=== PATIENT | male | born 1940 | race Caucasian/White ===

== ENCOUNTER 2016-12-04 07:17 | Outpatient (CLI) | payer MEDICARE | END 2016-12-04 07:18 | disposition home or self-care (01) | DX: I10 Essential (primary) hypertension (principal); E78.5 Hyperlipidemia, unspecified; R73.9 Hyperglycemia, unspecified ==

== ENCOUNTER 2018-01-20 08:00 | Outpatient (CLI) | payer MEDICARE ==
[2018-01-20 13:17] LABS: BASOPHILS # (AUTO) 0.1 10^3/uL (0.0-0.1); BASOPHILS % (AUTO) 1.1 %; EOSINOPHILS # (AUTO) 0.2 10^3/uL (0.0-0.7); EOSINOPHILS % (AUTO) 4.4 %; HGB - HEMOGLOBIN 15.4 g/dL (14.0-18.0); LYMPHOCYTES # (AUTO) 1.6 10^3/uL (1.5-3.5); LYMPHOCYTES % (AUTO) 32.9 %; MEAN CORPUSCULAR HEMOGLOBIN 30.3 pg (27.0-31.0); MEAN CORPUSCULAR HGB CONC 34.5 g/dL (32.0-36.0); MEAN CORPUSCULAR VOLUME 87.7 fL (80.0-94.0); MEAN PLATELET VOLUME 8.4 fL (7.4-11.4); MONOCYTES # (AUTO) 0.4 10^3/uL (0.0-1.0); MONOCYTES % (AUTO) 8.2 %; NEUTROPHILS # (AUTO) 2.7 10^3/uL (1.5-6.6); NEUTROPHILS % (AUTO) 53.4 %; PLT - PLATELET COUNT 168 10^3/uL (130-450); RED CELL DISTRIBUTION WIDTH 13.9 % (12.0-15.0)
[2018-01-20 13:21] LABS: HB2 TOTAL 17.6 g/dL; HEMOGLOBIN A1C 0.71 g/dL; HEMOGLOBIN A1C % 5.8 % (4.6-6.2)
[2018-01-20 13:31] LABS: ALBUMIN 4.3 g/dL (3.2-5.5); ALBUMIN/GLOBULIN RATIO 2.4 (1.0-2.2); ALKALINE PHOSPHATASE 51 IU/L (42-121); ALT ALANINE AMINOTRANSFERASE 27 IU/L (10-60); AST ASPARTATE AMINOTRANSFERASE 27 IU/L (10-42); BILIRUBIN,TOTAL 0.4 mg/dL (0.2-1.0); BUN - BLOOD UREA NITROGEN 16 mg/dL (6-20); CALCIUM 9.2 mg/dL (8.5-10.3); CARBON DIOXIDE - CO2 23 mmol/L (21-32); CHLORIDE 106 mmol/L (101-111); CHOL/HDL RATIO 3.1 (<5.0); CHOLESTEROL 194 mg/dL; CREATININE 0.8 mg/dL (0.6-1.2); GFR - MDRD 94 (>89); GLUCOSE 145 mg/dL (70-100); HDL CHOLESTEROL 62 mg/dL; LDL CHOLESTEROL,CALCULATED 122 mg/dL; SODIUM 136 mmol/L (135-145); TOTAL PROTEIN 6.1 g/dL (6.7-8.2); VLDL CHOLESTEROL 10 mg/dL
== END 2018-01-20 08:01 ==
LOC: LAB.WCP 08:00
PROVIDERS: ATTEND Family Medicine
DX: I10 Essential (primary) hypertension (principal); R73.9 Hyperglycemia, unspecified; Z12.5 Encounter for screening for malignant neoplasm of prostate; E78.5 Hyperlipidemia, unspecified
CPT/HCPCS: 36415; 80053; 80061; 83036; 84443; 85025; G0103; 83721; 84153

== ENCOUNTER 2019-02-11 08:00 | Outpatient (CLI) | payer MEDICARE ==
[2019-02-11 12:24] LABS: BASOPHILS # (AUTO) 0.1 10^3/uL (0.0-0.1); EOSINOPHILS # (AUTO) 0.3 10^3/uL (0.0-0.7); EOSINOPHILS % (AUTO) 3.8 %; HGB - HEMOGLOBIN 13.8 g/dL (14.0-18.0); LYMPHOCYTES # (AUTO) 1.9 10^3/uL (1.5-3.5); LYMPHOCYTES % (AUTO) 23.9 %; MEAN CORPUSCULAR HEMOGLOBIN 29.3 pg (27.0-31.0); MEAN CORPUSCULAR HGB CONC 34.2 g/dL (32.0-36.0); MEAN CORPUSCULAR VOLUME 85.7 fL (80.0-94.0); MEAN PLATELET VOLUME 8.3 fL (7.4-11.4); MONOCYTES # (AUTO) 0.7 10^3/uL (0.0-1.0); MONOCYTES % (AUTO) 8.6 %; NEUTROPHILS # (AUTO) 4.9 10^3/uL (1.5-6.6); NEUTROPHILS % (AUTO) 62.7 %; PLT - PLATELET COUNT 162 10^3/uL (130-450); RED BLOOD COUNT 4.72 10^6/uL (4.70-6.10); RED CELL DISTRIBUTION WIDTH 13.1 % (12.0-15.0); WHITE BLOOD COUNT 7.9 x10^3/uL (4.8-10.8)
[2019-02-11 13:20] LABS: ALBUMIN 3.9 g/dL (3.2-5.5); ALBUMIN/GLOBULIN RATIO 1.6 (1.0-2.2); ALKALINE PHOSPHATASE 105 IU/L (42-121); ALT ALANINE AMINOTRANSFERASE 18 IU/L (10-60); AST ASPARTATE AMINOTRANSFERASE 16 IU/L (10-42); BILIRUBIN,TOTAL 0.7 mg/dL (0.2-1.0); BUN - BLOOD UREA NITROGEN 16 mg/dL (6-20); CALCIUM 9.3 mg/dL (8.5-10.3); CARBON DIOXIDE - CO2 25 mmol/L (21-32); CHLORIDE 102 mmol/L (101-111); CHOL/HDL RATIO 3.1 (<5.0); CHOLESTEROL 167 mg/dL; GFR - MDRD 72 (>89); GLUCOSE 125 mg/dL (70-100); HDL CHOLESTEROL 54 mg/dL; LDL CHOLESTEROL,CALCULATED 98 mg/dL; LDL/HDL RATIO 1.8 (<3.6); SODIUM 137 mmol/L (135-145); TOTAL PROTEIN 6.4 g/dL (6.7-8.2); VLDL CHOLESTEROL 15 mg/dL
== END 2019-02-11 08:01 | disposition home or self-care (01) ==
LOC: LAB.WCP 08:00
PROVIDERS: ATTEND Family Medicine
DX: I44.7 Left bundle-branch block, unspecified (principal); I10 Essential (primary) hypertension; R73.9 Hyperglycemia, unspecified; E78.5 Hyperlipidemia, unspecified; M10.00 Idiopathic gout, unspecified site
CPT/HCPCS: 36415; 80053; 80061; 83721; 84550; 85025

== ENCOUNTER 2019-10-22 08:00 | Outpatient (CLI) | payer MEDICARE ==
[2019-10-22 14:30] LABS: CALCIUM 9.3 mg/dL (8.5-10.3); CREATININE 0.9 mg/dL (0.6-1.2); URIC ACID 5.3 mg/dL (2.6-7.2)
== END 2019-10-22 23:59 | disposition home or self-care (01) ==
LOC: LAB.WCP 08:00
PROVIDERS: ATTEND Family Medicine
DX: M10.00 Idiopathic gout, unspecified site (principal)
CPT/HCPCS: 36415; 80048; 84550

== ENCOUNTER 2020-08-22 09:34 | Day surgery (SDC) | payer MEDICARE ==
[2020-08-22] MEDS ORDERED: fentaNYL 250 MCG/5 ML VIAL IVP ONE (09:35)
[2020-08-22] MEDS ORDERED: MIDAZOLAM 2 MG/2 ML VIAL IVP ONE (09:35)
[2020-08-22] MEDS ORDERED: LACTATED RINGERS 1,000 ML IV ONE ×2 (09:37→12:01)
[2020-08-22 12:17] VITALS: BP 133/68
[2020-08-22] MEDS ORDERED: ONDANSETRON ODT 4 MG TABLET ONE (12:54)
== END 2020-08-22 09:35 | disposition home or self-care (01) ==
LOC: SDS 09:34
PROVIDERS: ATTEND Surgery
DX: Z12.11 Encounter for screening for malignant neoplasm of colon (principal); K57.30 Diverticulosis of large intestine without perforation or abscess without bleeding; K64.8 Other hemorrhoids; Z80.0 Family history of malignant neoplasm of digestive organs; Z86.010 Personal history of colon polyps; I10 Essential (primary) hypertension; Z87.891 Personal history of nicotine dependence
CPT/HCPCS: G0105; J3010; J7120; Q0162

== ENCOUNTER 2021-04-28 08:00 | Outpatient (CLI) | payer MEDICARE ==
[2021-04-28 12:14] LABS: BASOPHILS # (AUTO) 0.1 10^3/uL (0.0-0.1); BASOPHILS % (AUTO) 0.8 %; EOSINOPHILS # (AUTO) 0.4 10^3/uL (0.0-0.7); EOSINOPHILS % (AUTO) 5.9 %; HCT - HEMATOCRIT 48.1 % (42.0-52.0); HGB - HEMOGLOBIN 16.3 g/dL (14.0-18.0); LYMPHOCYTES # (AUTO) 1.8 10^3/uL (1.5-3.5); LYMPHOCYTES % (AUTO) 28.6 %; MEAN CORPUSCULAR HEMOGLOBIN 30.5 pg (27.0-31.0); MEAN CORPUSCULAR HGB CONC 33.9 g/dL (32.0-36.0); MEAN CORPUSCULAR VOLUME 89.9 fL (80.0-94.0); MEAN PLATELET VOLUME 9.8 fL (7.4-11.4); MONOCYTES # (AUTO) 0.4 10^3/uL (0.0-1.0); MONOCYTES % (AUTO) 6.6 %; NEUTROPHILS # (AUTO) 3.7 10^3/uL (1.5-6.6); NEUTROPHILS % (AUTO) 57.8 %; PLT - PLATELET COUNT 172 10^3/uL (130-450); RED BLOOD COUNT 5.35 10^6/uL (4.70-6.10); WHITE BLOOD COUNT 6.4 x10^3/uL (4.8-10.8)
[2021-04-28 12:33] LABS: ESTIMATED AVERAGE GLUCOSE 114 mg/dL (70-100); HEMOGLOBIN A1c% 5.6 % (4.27-6.07)
[2021-04-28 12:44] LABS: THYROID STIMULATING HORMONE 1.48 uIU/mL (0.34-5.60)
[2021-04-28 12:45] LABS: ALBUMIN 4.5 g/dL (3.2-5.5); ALBUMIN/GLOBULIN RATIO 1.8 (1.0-2.2); ALKALINE PHOSPHATASE 78 IU/L (42-121); ALT ALANINE AMINOTRANSFERASE 20 IU/L (10-60); AST ASPARTATE AMINOTRANSFERASE 18 IU/L (10-42); BILIRUBIN,TOTAL 0.7 mg/dL (0.2-1.0); BUN - BLOOD UREA NITROGEN 16 mg/dL (6-20); CALCIUM 9.4 mg/dL (8.5-10.3); CARBON DIOXIDE - CO2 26 mmol/L (21-32); CHLORIDE 105 mmol/L (101-111); CHOL/HDL RATIO 2.3 (<5.0); CHOLESTEROL 174 mg/dL; CREATININE 0.8 mg/dL (0.6-1.2); GFR - MDRD 93 (>89); GLUCOSE 121 mg/dL (70-100); HDL CHOLESTEROL 75 mg/dL; LDL CHOLESTEROL,CALCULATED 83 mg/dL; LDL/HDL RATIO 1.1 (<3.6); POTASSIUM 4.3 mmol/L (3.5-5.0); SODIUM 140 mmol/L (135-145); TRIGLYCERIDES 80 mg/dL; URIC ACID 5.3 mg/dL (2.6-7.2); VLDL CHOLESTEROL 16 mg/dL
[2021-04-28 13:34] LABS: CREATININE,URINE 273.9 mg/dL; MICROALBUM/CREATININE RATIO,UR 29.6 ug/mg (<30.0); MICROALBUMIN,URINE 8.1 mg/dL (0-300.0)
== END 2021-04-28 23:59 | disposition home or self-care (01) ==
LOC: LAB.WCP 08:00
PROVIDERS: ATTEND Internal Medicine
DX: I10 Essential (primary) hypertension (principal); E78.5 Hyperlipidemia, unspecified; R73.9 Hyperglycemia, unspecified; E79.0 Hyperuricemia without signs of inflammatory arthritis and tophaceous disease
CPT/HCPCS: 36415; 80053; 80061; 82043; 82570; 83036; 83721; 84443; 84550; 85025

== ENCOUNTER 2021-04-28 10:35 | Outpatient (CLI) | payer MEDICARE ==
[2021-04-28 12:39] LABS: BILIRUBIN,URINE NEGATIVE (NEGATIVE); GLUCOSE, URINE (UA) 250 mg/dL (NEGATIVE); KETONES,URINE (UA) NEGATIVE (NEGATIVE); LEUKOCYTE ESTERASE, URINE NEGATIVE (NEGATIVE); NITRITE,URINE NEGATIVE (NEGATIVE); OCCULT BLOOD,URINE NEGATIVE (NEGATIVE); PH,URINE 5.5 PH (5.0-7.5); PROTEIN,URINE NEGATIVE (NEGATIVE); UROBILINOGEN,URINE 0.2 (NORMAL) E.U./dL (NORMAL)
[2021-04-28 13:03] LABS: CLARITY,URINE CLEAR (CLEAR); WBC,URINE 0-3 /HPF (0-3)
[2021-04-28 13:04] LABS: BACTERIA,URINE None Seen /HPF (None Seen); RBC,URINE 0-5 /HPF (0-5); SQUAMOUS EPITHELIAL CELL,UR RARE Squamous (<= Few)
== END 2021-04-28 23:59 | disposition home or self-care (01) ==
LOC: LAB.N 10:35
PROVIDERS: ATTEND Nurse Practitioner
DX: R10.9 Unspecified abdominal pain (principal); Z98.1 Arthrodesis status; I10 Essential (primary) hypertension; E78.5 Hyperlipidemia, unspecified; R73.9 Hyperglycemia, unspecified; E79.0 Hyperuricemia without signs of inflammatory arthritis and tophaceous disease
CPT/HCPCS: 36415; 80053; 80061; 81001; 82043; 82570; 83036; 83721; 84443; 84550; 85025; 87086

== ENCOUNTER → 2021-04-28 | Outpatient (CLI) | payer MEDICARE ==
--- NOTE | 2021-04-28 15:19 | XRAY Report ---
PROCEDURE: Lumbar Spine 2 View INDICATIONS: FLANK PAIN, RIGHT TECHNIQUE: 3 views of the lumbar spine were acquired. COMPARISON: None. FINDINGS: Bones: 5 [id number] vertebrae are present. There is normal bony alignment maintained by transv erse pedicle screws and vertical fixation rods with interbody disc spacers spanning from L1 through L 4.. No vertebral body compression fractures. No suspicious bony lesions. Soft tissues: Overlying bowel gas pattern is normal. No suspicious soft tissue calcifications. IMPRESSION: L1-L4 posterior fusion with interbody disc spacers at L4 1-2, L2-L3 and L3-L4. No eviden ce of device loosening or disruption is seen. Reviewed by: Adam Gaitan MD on 04/28/2021 3:18 PM PDT Approved by: Adam Gaitan MD on 04/28/2021 3:18 PM PDT Station ID: [id number]
== END ==
LOC: DI.N 10:29
PROVIDERS: ATTEND Nurse Practitioner
DX: R10.9 Unspecified abdominal pain (principal); Z98.1 Arthrodesis status

== ENCOUNTER 2021-07-21 07:00 | Outpatient (CLI) | payer MEDICARE ==
--- NOTE | 2021-07-21 10:04 | Ultrasound Report ---
PROCEDURE: Aorta Screening INDICATIONS: HIST OF SMOKING TECHNIQUE: Real time scanning was performed of the aorta and iliac arteries, with image documentatio n. COMPARISON: None FINDINGS: Aorta: Proximal aortic diameter measures 2.8 x 2.8 cm. Mid-aorta measures 2 x 1.9 cm. Distal aorti c diameter is 2.4 x 1.6 cm. Iliac arteries: Right common iliac artery measures 1.4 x 1.2 cm. Left common iliac artery measures 1.7 x 1.4 cm. Incidentally noted are multiple left renal cysts measures up to 4 x 3.7 x 4 cm in lower pole of left kidney. IMPRESSION: 1. No evidence of abdominal aortic aneurysm. 2. Multiple left renal cysts as above. Reviewed by: Tj Phan MD on 07/21/2021 10:02 AM PDT Approved by: Tj Phan MD on 07/21/2021 10:02 AM PDT Station ID: [id number]
== END 2021-07-21 07:01 | disposition home or self-care (01) ==
LOC: DI 07:00
PROVIDERS: ATTEND Internal Medicine
DX: Z13.6 Encounter for screening for cardiovascular disorders (principal); Z87.891 Personal history of nicotine dependence; N28.1 Cyst of kidney, acquired

== ENCOUNTER 2021-07-28 08:41 | Outpatient (CLI) | payer MEDICARE ==
[2021-07-28 12:39] LABS: CALCIUM 9.4 mg/dL (8.5-10.3); CREATININE 0.7 mg/dL (0.6-1.2); POTASSIUM 4.2 mmol/L (3.5-5.0); URIC ACID 5.6 mg/dL (2.6-7.2)
== END 2021-07-28 23:59 | disposition home or self-care (01) ==
LOC: LAB.WCP 08:41
PROVIDERS: ATTEND Internal Medicine
DX: I10 Essential (primary) hypertension (principal); M10.9 Gout, unspecified
CPT/HCPCS: 36415; 80048; 84550

== ENCOUNTER 2021-10-30 08:00 | Outpatient (CLI) | payer MEDICARE ==
[2021-10-30 12:01] LABS: CALCIUM 9.7 mg/dL (8.5-10.3); CREATININE 0.9 mg/dL (0.6-1.2); POTASSIUM 4.2 mmol/L (3.5-5.0); URIC ACID 4.9 mg/dL (2.6-7.2)
== END 2021-10-30 23:59 | disposition home or self-care (01) ==
LOC: LAB.WCP 08:00
PROVIDERS: ATTEND Internal Medicine
DX: M10.9 Gout, unspecified (principal)
CPT/HCPCS: 36415; 80048; 84550

== ENCOUNTER 2022-12-31 09:55 | Outpatient (CLI) | payer MEDICARE ==
[2022-12-31 12:07] LABS: BASOPHILS # (AUTO) 0.1 10^3/uL (0.0-0.1); BASOPHILS % (AUTO) 1.1 %; EOSINOPHILS # (AUTO) 0.3 10^3/uL (0.0-0.7); EOSINOPHILS % (AUTO) 5.2 %; HCT - HEMATOCRIT 45.4 % (42.0-52.0); LYMPHOCYTES % (AUTO) 30.4 %; MEAN CORPUSCULAR HEMOGLOBIN 31.2 pg (27.0-31.0); MEAN CORPUSCULAR HGB CONC 35.2 g/dL (32.0-36.0); MEAN CORPUSCULAR VOLUME 88.5 fL (80.0-94.0); MONOCYTES # (AUTO) 0.5 10^3/uL (0.0-1.0); MONOCYTES % (AUTO) 7.7 %; NEUTROPHILS # (AUTO) 3.6 10^3/uL (1.5-6.6); NEUTROPHILS % (AUTO) 55.3 %; PLT - PLATELET COUNT 182 10^3/uL (130-450); RED BLOOD COUNT 5.13 10^6/uL (4.70-6.10); RED CELL DISTRIBUTION WIDTH 13.1 % (12.0-15.0); WHITE BLOOD COUNT 6.5 x10^3/uL (4.8-10.8)
[2022-12-31 12:43] LABS: ALBUMIN 4.3 g/dL (3.2-5.5); ALBUMIN/GLOBULIN RATIO 1.8 (1.0-2.2); ALKALINE PHOSPHATASE 75 IU/L (42-121); ALT ALANINE AMINOTRANSFERASE 40 IU/L (10-60); AST ASPARTATE AMINOTRANSFERASE 26 IU/L (10-42); BILIRUBIN,TOTAL 0.7 mg/dL (0.2-1.0); BUN - BLOOD UREA NITROGEN 16 mg/dL (6-20); CALCIUM 9.2 mg/dL (8.5-10.3); CARBON DIOXIDE - CO2 26 mmol/L (21-32); CHLORIDE 111 mmol/L (101-111); CHOL/HDL RATIO 2.9 (<5.0); CHOLESTEROL 178 mg/dL; CREATININE 0.9 mg/dL (0.6-1.2); GFR - MDRD 81 (>89); GLUCOSE 180 mg/dL (70-100); HDL CHOLESTEROL 61 mg/dL; LDL CHOLESTEROL,CALCULATED 83 mg/dL; LDL/HDL RATIO 1.4 (<3.6); POTASSIUM 4.2 mmol/L (3.5-5.0); SODIUM 140 mmol/L (135-145); TOTAL PROTEIN 6.7 g/dL (6.7-8.2); TRIGLYCERIDES 168 mg/dL; URIC ACID 5.8 mg/dL (2.6-7.2); VLDL CHOLESTEROL 34 mg/dL
[2022-12-31 13:35] LABS: ESTIMATED AVERAGE GLUCOSE 126 mg/dL (70-100)
== END 2022-12-31 09:56 | disposition home or self-care (01) ==
LOC: LAB.N 09:55
PROVIDERS: ATTEND Internal Medicine
DX: I10 Essential (primary) hypertension (principal); E78.5 Hyperlipidemia, unspecified; R73.01 Impaired fasting glucose; M10.9 Gout, unspecified
CPT/HCPCS: 36415; 80053; 80061; 83036; 83721; 84550; 85025

== ENCOUNTER 2023-01-25 20:09 | Emergency (ER) | payer MEDICARE ==
--- NOTE | 2023-01-25 20:41 | ED Physician Documentation ---
History of Present Illness - Stated complaint Stated Complaint: LOW BP - Chief complaint Chief Complaint: General - History obtained from History obtained from: Patient - Additonal information Additional information: HPI from patient. Patient says he was active today. He then got into bed this evening and "didn't feel quite right so I took my blood pressure" (per patient), with result of 115/42. In elaborating on what didn't feel right, he describes generalized weakness, mild lightheadedness. Symptoms have resolved COMPTROLLER without specific intervention. There were no exacerbating nor ameliorating factors. On ROS, patient says he has been having mild midline anterior chest pains, episodic x several days, as well as dyspnea on exertion over past few weeks-months Review of Systems Constitutional: denies: Fever, Chills, Sweats Cardiac: reports: Chest pain / pressure (not currently having CP). denies: Palpitations, Pedal edema Respiratory: reports: Dyspnea. denies: Cough, Wheezing GI: reports: Reviewed and negative : denies: Dysuria, Frequency Neurologic: reports: Generalized weakness (resolved COMPTROLLER). denies: Focal weakness, Numbness PD PAST MEDICAL HISTORY - Past Medical History Cardiovascular: Hypertension, Arrhythmia Respiratory: None Endocrine/Autoimmune:  GI: Hemorrhoids : None HEENT: Chronic hearing loss Psych: None Musculoskeletal: Osteoarthritis, Gout, Chronic back pain Derm: None - Past Surgical History Ortho: Arthroscopic surgery, Carpal Tunnel surgery, Spine surgery, Other HEENT: Tonsil/Adenoidectomy - Present Medications Home Medications: Ambulatory Orders Medication Instructions Recorded Confirmed Lisinopril 10 mg PO DAILY 03/23/15 08/22/20 amLODIPine [Norvasc] 10 mg PO DAILY 03/23/15 08/22/20 Ascorbic Acid [Vitamin C] 500 mg PO DAILY 08/22/20 08/22/20 Colchicine [Colcrys] 0.6 mg PO ONCE 08/22/20 08/22/20 allopurinoL [Zyloprim] 300 mg PO DAILY 08/22/20 08/22/20 - Allergies Allergies/Adverse Reactions: Allergies Allergy/AdvReac Type Severity Reaction Status Date / Time No Known Drug Allergies Allergy Verified 01/25/23 20:18 - Social History Does the pt smoke?: No Smoking Status: Never smoker PD ED PE NORMAL - Vitals Vital signs reviewed: Yes - General General: Alert and oriented X 3, No acute distress, Well developed/nourished - HEENT HEENT: Moist mucous membranes - Cardiac Cardiac: RRR, No murmur - Respiratory Respiratory: No respiratory distress, Clear bilaterally - Abdomen Abdomen: Soft, Non tender - Derm Derm: Normal color, Warm and dry - Neuro Neuro: Alert and oriented X 3, wardrobe assistant 2-12 intact, No motor deficit, No sensory deficit, Normal speech Eye Opening: Spontaneous Motor: Obeys Commands Verbal: Oriented GCS Score: 15 Results - Vitals Vitals: Oxygen O2 Source Room air - EKG (time done) No standard instances EKG releavant findings:: EKG personally interpreted by author of this note. Relevant findings are: Rate: Rate (enter#) (66) Rhythm: NSR Gaastra: LAD Intervals: LBBB Other comments: Other comments (does not meet Sgarbossa criteria; LBBB not new (per patient)) - Labs Labs: Laboratory Tests 01/25/23 01/25/23 01/25/23 20:56 20:56 20:56 WBC 7.9 RBC 4.82 Hgb 14.6 Hct 42.8 MCV 88.8 MCH 30.3 MCHC 34.1 RDW 12.8 Plt Count 157 MPV 9.2 Neut # (Auto) 4.2 Lymph # (Auto) 2.6 Mathews # (Auto) 0.6 Eos # (Auto) 0.4 Baso # (Auto) 0.1 Absolute Nucleated RBC 0.00 Nucleated RBC % 0.0 Sodium 138 Potassium 4.0 Chloride 104 Carbon Dioxide 21 Anion Gap 13.0 BUN 16 Creatinine 1.0 Estimated GFR (MDRD) 72 L Glucose 138 H Calcium 9.1 Total Bilirubin 0.4 AST 25 ALT 37 Alkaline Phosphatase 76 Troponin I High Sens 24.1 H* Total Protein 6.1 L Albumin 3.9 Globulin 2.2 Albumin/Globulin Ratio 1.8 Lipase 45 01/25/23 22:50 WBC RBC Hgb Hct MCV MCH MCHC RDW Plt Count MPV Neut # (Auto) Lymph # (Auto) Mathews # (Auto) Eos # (Auto) Baso # (Auto) Absolute Nucleated RBC Nucleated RBC % Sodium Potassium Chloride Carbon Dioxide Anion Gap BUN Creatinine Estimated GFR (MDRD) Glucose Calcium Total Bilirubin AST ALT Alkaline Phosphatase Troponin I High Sens 23.9 H* Total Protein Albumin Globulin Albumin/Globulin Ratio Lipase - Rads (name of study) cxr Relevant Findings:: Prelim report reviewed, EMP independent interpretation of test (Images reviewed by me and my interpretation is no acute disease including no infiltrate, no cardiomegaly), See rad report PD Medical Decision Making - ED course Complexity details: reviewed results, re-evaluated patient, considered differential, d/w patient ED course: Presents with near-syncope. LBBB on EKG is not new, per patient. Blood test results unremarkable except for mildly elevated hs-cTn (24.1), but 2-hour repeat without significant change (23.9) Departure - Departure Disposition: Home, Self Care Clinical Impression: Near syncope Condition: Good Instructions: ED Near Syncope Unkn Comments: Your blood tests were almost completely normal with the notable exception of the cardiac blood test which, as we discussed, was slightly elevated above the normal range. Sometimes this can indicate a serious cardiac problem, but a repeat of the same test (two hours from the first result) was unchanged; this wo uld strongly suggest against an acute cardiac issue. The cause of your symptoms and mildly low blood pressure is not apparent at this time. Your blood pressures were normal in the emergency department. I would recommend that you stop your lisinopril (but continue your amlodipine and all of your other medications as prescribed) over the weekend and monitor your blood pressures. It would be preferable to have your blood pressures run a little bit higher than normal over the weekend rather than too low; a low blood pressure is an immediate danger whereas high blood pressure tends to be a problem over time. Contact your primary care provider on Saturday when their office opens to arrange for the next available appointment for reevaluation. Discharge Date/Time: 01/25/23 23:51
--- NOTE | 2023-01-25 20:57 | XRAY Report ---
PROCEDURE: Chest 1 View X-Ray INDICATIONS: Chest pain TECHNIQUE: One view of the chest was acquired. COMPARISON: Chest x-ray 08/16/2015. FINDINGS: Surgical changes and devices: Postsurgical changes demonstrated within the lower cervical spine. Lungs and pleura: No pleural effusions or pneumothorax. Lungs are clear. Mediastinum: Mediastinal contours appear normal. Heart size is normal. Bones and chest wall: No suspicious bony lesions. Overlying soft tissues appear unremarkable. IMPRESSION: 1. No acute cardiopulmonary disease. Reviewed by: Omid Zuñiga MD on 01/25/2023 8:56 PM PDT Approved by: Omid Zuñiga MD on 01/25/2023 8:56 PM PDT Station ID: [id number]
[2023-01-25 21:05] LABS: BASOPHILS # (AUTO) 0.1 10^3/uL (0.0-0.1); BASOPHILS % (AUTO) 0.9 %; EOSINOPHILS # (AUTO) 0.4 10^3/uL (0.0-0.7); EOSINOPHILS % (AUTO) 5.1 %; HCT - HEMATOCRIT 42.8 % (42.0-52.0); HGB - HEMOGLOBIN 14.6 g/dL (14.0-18.0); LYMPHOCYTES # (AUTO) 2.6 10^3/uL (1.5-3.5); LYMPHOCYTES % (AUTO) 32.9 %; MEAN CORPUSCULAR HEMOGLOBIN 30.3 pg (27.0-31.0); MEAN CORPUSCULAR HGB CONC 34.1 g/dL (32.0-36.0); MEAN CORPUSCULAR VOLUME 88.8 fL (80.0-94.0); MEAN PLATELET VOLUME 9.2 fL (7.4-11.4); MONOCYTES # (AUTO) 0.6 10^3/uL (0.0-1.0); MONOCYTES % (AUTO) 7.5 %; NEUTROPHILS # (AUTO) 4.2 10^3/uL (1.5-6.6); NEUTROPHILS % (AUTO) 53.5 %; PLT - PLATELET COUNT 157 10^3/uL (130-450); RED BLOOD COUNT 4.82 10^6/uL (4.70-6.10); RED CELL DISTRIBUTION WIDTH 12.8 % (12.0-15.0); WHITE BLOOD COUNT 7.9 x10^3/uL (4.8-10.8)
[2023-01-25 21:19] LABS: ALBUMIN 3.9 g/dL (3.2-5.5); ALBUMIN/GLOBULIN RATIO 1.8 (1.0-2.2); BILIRUBIN,TOTAL 0.4 mg/dL (0.2-1.0); CALCIUM 9.1 mg/dL (8.5-10.3); TOTAL PROTEIN 6.1 g/dL (6.7-8.2)
[2023-01-25 23:18] VITALS: BP 140/59
== END 2023-01-25 23:51 | disposition home or self-care (01) ==
LOC: ED 20:09
DX: R55 Syncope and collapse (principal); I10 Essential (primary) hypertension
CPT/HCPCS: 36415; 80053; 83690; 84484; 85025; 93005; 99283; 99284

== ENCOUNTER 2023-05-28 11:51 | Outpatient (CLI) | payer MEDICARE ==
[2023-05-28 12:22] LABS: CREATININE 0.8 mg/dL (0.6-1.3)
== END 2023-05-28 11:52 | disposition home or self-care (01) ==
LOC: LAB 11:51
PROVIDERS: ATTEND Internal Medicine
DX: I73.9 Peripheral vascular disease, unspecified (principal)
CPT/HCPCS: 36415; 82565

== ENCOUNTER 2023-06-06 14:02 | Outpatient (CLI) | payer MEDICARE ==
[2023-06-06] MEDS ORDERED: IOVERSOL 320 100 ML VIAL IVP ONE (16:31)
--- NOTE | 2023-06-06 17:49 | CT Report ---
PROCEDURE: ANGIO ABD RUNOFF W/WO - B/L INDICATIONS: BILATERAL CLAUDICATION CONTRAST: 140ml Optiray 320 TECHNIQUE: After the administration of intravenous contrast, a CT scan of the abdomen, pelvis and lower extremit ies (to the feet) was performed. Images were recorded and evaluated at appropriate window settings. R eformats: coronal and sagittal. For radiation dose reduction, the following was used: automated expos ure control, adjustment of mA and/or kV according to patient size. COMPARISON: None. FINDINGS: Image quality: Excellent. Abdominal aorta: Atheromatous calcifications are present throughout the infrarenal abdominal aorta. No aneurysmal dilatation or dissection. The MARCO, SMA, celiac axis and renal arteries are widely paten t. Right lower extremity: Common iliac artery: Mild atheromatous calcification. No stenosis. External iliac artery: Mild calcification. No stenosis. Common femoral artery: Atheromatous calcification is present with mild resultant stenosis. Superficial femoral artery: Scattered atheromatous plaque and calcifications are present. Multifocal moderate to high-grade stenoses are present within the mid SFA. Popliteal artery: Dense atheromatous calcification results in moderate and severe stenoses. Anterior tibial artery: No significant atherosclerotic disease. Peroneal artery: No significant atherosclerotic disease. Posterior tibial artery: No significant atherosclerotic disease. Left lower extremity: Right lower extremity: Common iliac artery: Atheromatous calcifications with mild stenosis. External iliac artery: No significant atherosclerotic disease. Common femoral artery: Atheromatous calcification with mild to moderate stenosis. Superficial femoral artery: Mild to moderate multifocal stenoses secondary to atheromatous calcificat ions. Popliteal artery: A moderate grade stenosis secondary to atheromatous calcifications is present. Anterior tibial artery: No significant atherosclerotic disease. Peroneal artery: No significant atherosclerotic disease. Posterior tibial artery: No significant atherosclerotic disease. OTHER: Lung bases and heart: Unremarkable. Liver: No solid mass. Gallbladder and biliary tree: Unremarkable. No dilatation. Spleen: No splenomegaly. Pancreas: No pancreatic ductal dilation. Adrenals: No adrenal nodule. Kidneys and ureters: No hydronephrosis. There are bilateral low-density renal cystic lesions. 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 Bowel and peritoneum: No bowel distension. No pathologic free fluid. Diverticulosis. No acute diverti culitis. The appendix is thin-walled and gas-filled. Lymph nodes: No central or retroperitoneal adenopathy. Vessels: No infrarenal aortic aneurysm. Reproductive organs: Unremarkable. Bladder: No abnormal wall thickening, accounting for underdistention. Pelvic lymph nodes: No pelvic adenopathy by size criteria. Bones: No aggressive osseous abnormality. Extensive postoperative changes noted within the lumbar spi ne. Other: There is a moderate fat-containing left inguinal hernia. IMPRESSION: 1. 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 2. Multifocal high-grade stenoses within the right popliteal artery. 3. Three-vessel right lower extremity runoff. 4. Moderate multifocal stenoses within the left SFA and popliteal artery. 5. Three-vessel left lower extremity runoff. 6. No acute intra-abdominal findings. Normal appendix. Diverticulosis. No acute diverticulitis. Reviewed by: Parul Herndon MD on 06/06/2023 5:48 PM PDT Approved by: Parul Herndon MD on 06/06/2023 5:48 PM PDT Station ID: [id number]
== END 2023-06-06 14:03 | disposition home or self-care (01) ==
LOC: DI 14:02
PROVIDERS: ATTEND Internal Medicine
DX: I70.213 Atherosclerosis of native arteries of extremities with intermittent claudication, bilateral legs (principal)
CPT/HCPCS: 75635; Q9967

== ENCOUNTER 2023-07-13 19:27 | Emergency (ER) | payer MEDICARE ==
[2023-07-13] MEDS ORDERED: ACETAMINOPHEN 500 MG TABLET PO STA (20:15)
[2023-07-13] MEDS ORDERED: SODIUM CHLORIDE 0.9% 1,000 ML IV STA (20:15)
--- NOTE | 2023-07-13 20:18 | ED Physician Documentation ---
History of Present Illness - Stated complaint Stated Complaint: FEVER,CONGESTION - Chief complaint Chief Complaint: Fever - History obtained from History obtained from: Patient - Additonal information Additional information: Patient is an 82-year-old male with a history of hypertension presenting for evaluation of 2 days of fever, nasal congestion, productive cough of yellow phlegm. He reports feeling weak and dizzy today. He denies chest pain or feeling short of air. No vomiting or diarrhea. His is also recently been ill with similar symptoms. The at the bedside states that she went to a meet up with other sewing friends and since then for others have been ill along with their spouses with similar URI symptoms. They both taken COVID test at home which have been negative. He has not taken ibuprofen or acetaminophen today. He is currently on day 5 of Augmentin for a dental infection. Review of Systems Constitutional: reports: Fever Nose: reports: Congestion Cardiac: denies: Chest pain / pressure Respiratory: reports: Cough GI: denies: Abdominal Pain, Vomiting : denies: Dysuria Neurologic: reports: Generalized weakness PD PAST MEDICAL HISTORY - Past Medical History Cardiovascular: Hypertension, Arrhythmia Respiratory: None Endocrine/Autoimmune:  GI: Hemorrhoids : None HEENT: Chronic hearing loss Psych: None Musculoskeletal: Osteoarthritis, Gout, Chronic back pain Derm: None - Past Surgical History Ortho: Arthroscopic surgery, Carpal Tunnel surgery, Spine surgery, Other HEENT: Tonsil/Adenoidectomy - Present Medications Home Medications: Ambulatory Orders Medication Instructions Recorded Confirmed Lisinopril 10 mg PO DAILY 03/23/15 08/22/20 amLODIPine [Norvasc] 10 mg PO DAILY 03/23/15 08/22/20 Ascorbic Acid [Vitamin C] 500 mg PO DAILY 08/22/20 08/22/20 Colchicine [Colcrys] 0.6 mg PO ONCE 08/22/20 08/22/20 allopurinoL [Zyloprim] 300 mg PO DAILY 08/22/20 08/22/20 - Allergies Allergies/Adverse Reactions: Allergies Allergy/AdvReac Type Severity Reaction Status Date / Time No Known Drug Allergies Allergy Verified 01/25/23 20:18 - Social History Does the pt smoke?: No Smoking Status: Never smoker PD ED PE NORMAL - General General: Alert and oriented X 3, No acute distress, Well developed/nourished - HEENT HEENT: Atraumatic, Moist mucous membranes, Pharynx benign - Neck Neck: Supple, no meningeal sign - Cardiac Cardiac: RRR, No murmur - Respiratory Respiratory: No respiratory distress, Clear bilaterally - Abdomen Abdomen: Normal bowel sounds, Soft, Non tender, Non distended, Other (Easily reducible ventral wall hernia) - Derm Derm: Warm and dry - Neuro Neuro: Alert and oriented X 3, Normal speech Results - Vitals Vitals: Vital Signs - 24 hr 07/13/23 07/13/23 07/13/23 19:48 20:24 20:54 Temperature 38.1 C H Heart Rate 92 84 85 Respiratory 19 20 20 Rate Blood Pressure 90/68 153/57 H O2 Saturation 93 95 94 07/13/23 07/13/23 07/13/23 21:24 21:54 22:00 Temperature Heart Rate 82 84 84 Respiratory 22 20 20 Rate Blood Pressure 147/58 H 140/57 H 140/57 H O2 Saturation 94 93 93 07/13/23 22:30 Temperature Heart Rate 77 Respiratory 18 Rate Blood Pressure 124/56 L O2 Saturation 93 Oxygen O2 Source Room air - Labs Labs: Laboratory Tests 07/13/23 07/13/23 07/13/23 20:29 20:29 20:29 WBC 12.6 H RBC 4.82 Hgb 14.7 Hct 42.8 MCV 88.8 MCH 30.5 MCHC 34.3 RDW 12.5 Plt Count 205 MPV 8.7 Neut # (Auto) 10.3 H Lymph # (Auto) 1.1 L [place] # (Auto) 1.0 Eos # (Auto) 0.1 Baso # (Auto) 0.1 Absolute Nucleated RBC 0.00 Nucleated RBC % 0.0 Sodium 133 L Potassium 3.9 Chloride 101 Carbon Dioxide 26 Anion Gap 6.0 BUN 13 Creatinine 0.9 Estimated GFR (MDRD) 81 L Glucose 143 H Lactic Acid 1.1 Calcium 9.5 Total Bilirubin 0.6 AST 15 ALT 23 Alkaline Phosphatase 81 Total Protein 6.3 L Albumin 4.1 Globulin 2.2 Albumin/Globulin Ratio 1.9 Lipase 30 Urine Color Urine Clarity Urine pH Ur Specific [place] Urine Protein Urine Glucose (UA) Urine Ketones Urine Occult Blood Urine Nitrite Urine Bilirubin Urine Urobilinogen Ur Leukocyte Esterase Ur Microscopic Review Urine Culture Comments Nasal Adenovirus (PCR) Nasal B. parapertussis DNA (PCR) Nasal Coronavir 229E PCR Nasal Coronavir HKU1 PCR Nasal Coronavir NL63 PCR Nasal Coronavir OC43 PCR Nasal Enterovir/Rhinovir PCR Nasal Influenza B PCR Nasal Influenza A PCR Nasal Parainfluen 1 PCR Nasal Parainfluen 2 PCR Nasal Parainfluen 3 PCR Nasal Parainfluen 4 PCR Nasal RSV (PCR) Nasal B.pertussis DNA PCR Nasal C.pneumoniae (PCR) Mehdi Human Metapneumo PCR Nasal M.pneumoniae (PCR) Nasal SARS-CoV-2 (PCR) 07/13/23 07/13/23 20:52 22:12 WBC RBC Hgb Hct MCV MCH MCHC RDW Plt Count MPV Neut # (Auto) Lymph # (Auto) [place] # (Auto) Eos # (Auto) Baso # (Auto) Absolute Nucleated RBC Nucleated RBC % Sodium Potassium Chloride Carbon Dioxide Anion Gap BUN Creatinine Estimated GFR (MDRD) Glucose Lactic Acid Calcium Total Bilirubin AST ALT Alkaline Phosphatase Total Protein Albumin Globulin Albumin/Globulin Ratio Lipase Urine Color YELLOW Urine Clarity CLEAR Urine pH 6.0 Ur Specific [place] 1.020 Urine Protein NEGATIVE Urine Glucose (UA) NEGATIVE Urine Ketones NEGATIVE Urine Occult Blood NEGATIVE Urine Nitrite NEGATIVE Urine Bilirubin NEGATIVE Urine Urobilinogen 0.2 (NORMAL) Ur Leukocyte Esterase NEGATIVE Ur Microscopic Review NOT INDICATED Urine Culture Comments NOT INDICATED Nasal Adenovirus (PCR) NOT DETECTED Nasal B. parapertussis DNA (PCR) NOT DETECTED Nasal Coronavir 229E PCR NOT DETECTED Nasal Coronavir HKU1 PCR NOT DETECTED Nasal Coronavir NL63 PCR NOT DETECTED Nasal Coronavir OC43 PCR NOT DETECTED Nasal Enterovir/Rhinovir PCR DETECTED A Nasal Influenza B PCR NOT DETECTED Nasal Influenza A PCR NOT DETECTED Nasal Parainfluen 1 PCR NOT DETECTED Nasal Parainfluen 2 PCR NOT DETECTED Nasal Parainfluen 3 PCR NOT DETECTED Nasal Parainfluen 4 PCR NOT DETECTED Nasal RSV (PCR) NOT DETECTED Nasal B.pertussis DNA PCR NOT DETECTED Nasal C.pneumoniae (PCR) NOT DETECTED Mehdi Human Metapneumo PCR NOT DETECTED Nasal M.pneumoniae (PCR) NOT DETECTED Nasal SARS-CoV-2 (PCR) NOT DETECTED PD Medical Decision Making - ED course Complexity details: reviewed results, re-evaluated patient, d/w patient, d/w family ED course: Patient presenting for evaluation of fever and URI symptoms for 2 days. is also been ill with similar symptoms. Sepsis work-up initiated due to age and presence of fever. Initial BP was low but on recheck was improved even prior to initiation of fluids. CBC, chemistries, chest x-ray and respiratory swab were obtained and reviewed. Mild leukocytosis. Blood cultures are pending. Chest x-ray which I reviewed is negative for pneumonia. Respiratory swab is positive for rhinovirus. Patient feeling better after IV fluids and acetaminophen. Patient not requiring oxygen here. He is counseled on continued supportive care as well as concerning symptoms to return for. Departure - Departure Disposition: Home, Self Care Clinical Impression: Rhinovirus, Febrile illness Condition: Stable Instructions: ED Viral Syndrome Comments: Your testing today shows that you are positive for rhinovirus/enterovirus which is a common cold virus. Please continue with acetaminophen or ibuprofen as needed for fevers or pain, plenty of hydration as well as rest. Return to the emergency department with any worsening symptoms. At this time I do not see signs of pneumonia on your chest x-ray. Forms: PCP List Discharge Date/Time: 07/13/23 23:02
[2023-07-13 20:37] LABS: BASOPHILS # (AUTO) 0.1 10^3/uL (0.0-0.1); BASOPHILS % (AUTO) 0.4 %; EOSINOPHILS # (AUTO) 0.1 10^3/uL (0.0-0.7); HCT - HEMATOCRIT 42.8 % (42.0-52.0); HGB - HEMOGLOBIN 14.7 g/dL (14.0-18.0); LYMPHOCYTES # (AUTO) 1.1 10^3/uL (1.5-3.5); LYMPHOCYTES % (AUTO) 8.9 %; MEAN CORPUSCULAR HEMOGLOBIN 30.5 pg (27.0-31.0); MEAN CORPUSCULAR HGB CONC 34.3 g/dL (32.0-36.0); MEAN CORPUSCULAR VOLUME 88.8 fL (80.0-94.0); MEAN PLATELET VOLUME 8.7 fL (7.4-11.4); NEUTROPHILS # (AUTO) 10.3 10^3/uL (1.5-6.6); NEUTROPHILS % (AUTO) 81.5 %; PLT - PLATELET COUNT 205 10^3/uL (130-450); RED BLOOD COUNT 4.82 10^6/uL (4.70-6.10); RED CELL DISTRIBUTION WIDTH 12.5 % (12.0-15.0); WHITE BLOOD COUNT 12.6 x10^3/uL (4.8-10.8)
[2023-07-13 20:49] LABS: ALBUMIN 4.1 g/dL (3.2-5.5); ALBUMIN/GLOBULIN RATIO 1.9 (1.0-2.2); BILIRUBIN,TOTAL 0.6 mg/dL (0.2-1.0); CALCIUM 9.5 mg/dL (8.5-10.3); CREATININE 0.9 mg/dL (0.6-1.3); POTASSIUM 3.9 mmol/L (3.5-4.5); TOTAL PROTEIN 6.3 g/dL (6.4-8.9)
--- NOTE | 2023-07-13 20:55 | XRAY Report ---
PROCEDURE: Chest 1 View X-Ray INDICATIONS: fever TECHNIQUE: One view of the chest was acquired. COMPARISON: None FINDINGS: Surgical changes and devices: None. Lungs and pleura: No pleural effusions or pneumothorax. Lungs are clear. Mediastinum: Mediastinal contours appear normal. Heart size is normal. Bones and chest wall: No suspicious bony lesions. Overlying soft tissues appear unremarkable. IMPRESSION: No acute cardiopulmonary findings Reviewed by: Charli Rapp MD on 07/13/2023 7:54 PM AKDT Approved by: Charli Rapp MD on 07/13/2023 7:54 PM AKDT Station ID: [id number]
[2023-07-13 22:01] LABS: B. PARAPERTUSSIS- RESP PCR PAN NOT DETECTED; B. PERTUSSIS- RESP PCR PANEL NOT DETECTED; C. PNEUMONIAE- RESP PCR PANEL NOT DETECTED; CORONAVIRUS 229E-RESP PCR NOT DETECTED; CORONAVIRUS HKU1-RESP PCR NOT DETECTED; CORONAVIRUS NL63-RESP PCR NOT DETECTED; CORONAVIRUS OC43-RESP PCR NOT DETECTED; HUMAN METAPNEUMOVIRUS NOT DETECTED; INFLUENZA A- RESP PCR PANEL NOT DETECTED; INFLUENZA B - RESP PCR PANEL NOT DETECTED; M. PNEUMONIAE- RESP PCR PANEL NOT DETECTED; PARAINFLUENZA VIRUS 1 NOT DETECTED; PARAINFLUENZA VIRUS 2 NOT DETECTED; PARAINFLUENZA VIRUS 3 NOT DETECTED; PARAINFLUENZA VIRUS 4 NOT DETECTED; RHINOVIRUS/ENTEROVIRUS DETECTED; RSV- RESP PCR PANEL NOT DETECTED; SARS-CoV-2 -RESP PCR PANEL NOT DETECTED
[2023-07-13 22:39] LABS: BILIRUBIN,URINE NEGATIVE (NEGATIVE); GLUCOSE, URINE (UA) NEGATIVE (NEGATIVE); KETONES,URINE (UA) NEGATIVE (NEGATIVE); LEUKOCYTE ESTERASE, URINE NEGATIVE (NEGATIVE); NITRITE,URINE NEGATIVE (NEGATIVE); OCCULT BLOOD,URINE NEGATIVE (NEGATIVE); PROTEIN,URINE NEGATIVE (NEGATIVE); UROBILINOGEN,URINE 0.2 (NORMAL) E.U./dL (NORMAL)
[2023-07-13 22:46] LABS: CLARITY,URINE CLEAR (CLEAR)
[2023-07-13 23:02] VITALS: BP 124/56; O2SAT 93
== END 2023-07-13 23:02 | disposition home or self-care (01) ==
LOC: ED 19:27
DX: B34.8 Other viral infections of unspecified site (principal); I10 Essential (primary) hypertension; Z20.822 Contact with and (suspected) exposure to COVID-19
CPT/HCPCS: 36415; 71045; 80053; 81003; 83605; 83690; 85025; 87040; 87633; 93005; 99284; A9270; 81001; 87086

== ENCOUNTER 2023-10-07 09:47 | Outpatient (CLI) | payer MEDICARE ==
[2023-10-07 12:35] LABS: BASOPHILS # (AUTO) 0.1 10^3/uL (0.0-0.1); BASOPHILS % (AUTO) 0.8 %; EOSINOPHILS # (AUTO) 0.4 10^3/uL (0.0-0.7); EOSINOPHILS % (AUTO) 4.9 %; HCT - HEMATOCRIT 45.2 % (42.0-52.0); HGB - HEMOGLOBIN 15.5 g/dL (14.0-18.0); LYMPHOCYTES # (AUTO) 2.3 10^3/uL (1.5-3.5); LYMPHOCYTES % (AUTO) 29.1 %; MEAN CORPUSCULAR HGB CONC 34.3 g/dL (32.0-36.0); MEAN CORPUSCULAR VOLUME 87.6 fL (80.0-94.0); MEAN PLATELET VOLUME 9.9 fL (7.4-11.4); MONOCYTES # (AUTO) 0.6 10^3/uL (0.0-1.0); MONOCYTES % (AUTO) 7.7 %; NEUTROPHILS # (AUTO) 4.4 10^3/uL (1.5-6.6); NEUTROPHILS % (AUTO) 57.2 %; PLT - PLATELET COUNT 186 10^3/uL (130-450); RED BLOOD COUNT 5.16 10^6/uL (4.70-6.10); RED CELL DISTRIBUTION WIDTH 13.2 % (12.0-15.0); WHITE BLOOD COUNT 7.8 x10^3/uL (4.8-10.8)
[2023-10-07 13:04] LABS: ALBUMIN 4.3 g/dL (3.2-5.5); ALKALINE PHOSPHATASE 89 IU/L (42-121); ALT ALANINE AMINOTRANSFERASE 24 IU/L (10-60); AST ASPARTATE AMINOTRANSFERASE 17 IU/L (10-42); BILIRUBIN,TOTAL 0.6 mg/dL (0.2-1.0); BUN - BLOOD UREA NITROGEN 14 mg/dL (6-20); CALCIUM 9.6 mg/dL (8.5-10.3); CARBON DIOXIDE - CO2 26 mmol/L (21-32); CHLORIDE 106 mmol/L (101-111); CHOLESTEROL 180 mg/dL; CREATININE 0.9 mg/dL (0.6-1.3); GFR - MDRD 81 (>89); GLUCOSE 133 mg/dL (74-104); HDL CHOLESTEROL 61 mg/dL; LDL CHOLESTEROL,CALCULATED 101 mg/dL; LDL/HDL RATIO 1.7 (<3.6); POTASSIUM 4.2 mmol/L (3.5-4.5); SODIUM 138 mmol/L (135-145); TOTAL PROTEIN 6.5 g/dL (6.4-8.9); TRIGLYCERIDES 91 mg/dL (48-352); VLDL CHOLESTEROL 18 mg/dL
[2023-10-07 13:07] LABS: THYROID STIMULATING HORMONE 1.35 uIU/mL (0.34-5.60)
[2023-10-07 13:08] LABS: ESTIMATED AVERAGE GLUCOSE 123 mg/dL (70-100); HEMOGLOBIN A1c% 5.9 % (4.27-6.07)
== END 2023-10-07 09:48 | disposition home or self-care (01) ==
LOC: LAB.N 09:47
PROVIDERS: ATTEND Internal Medicine
DX: I10 Essential (primary) hypertension (principal); E78.5 Hyperlipidemia, unspecified; R73.01 Impaired fasting glucose; I47.19 Other supraventricular tachycardia
CPT/HCPCS: 36415; 80053; 80061; 83036; 83721; 84443; 85025

== ENCOUNTER 2024-02-13 08:11 | Outpatient (CLI) | payer MEDICARE ==
[2024-02-13 12:21] LABS: ALBUMIN 4.4 g/dL (3.2-5.5); ALBUMIN/GLOBULIN RATIO 1.8 (1.0-2.2); ALKALINE PHOSPHATASE 86 IU/L (42-121); ALT ALANINE AMINOTRANSFERASE 18 IU/L (10-60); AST ASPARTATE AMINOTRANSFERASE 18 IU/L (10-42); BILIRUBIN,TOTAL 0.5 mg/dL (0.2-1.0); BUN - BLOOD UREA NITROGEN 12 mg/dL (6-20); CALCIUM 10.1 mg/dL (8.5-10.3); CARBON DIOXIDE - CO2 26 mmol/L (21-32); CHLORIDE 106 mmol/L (101-111); CHOL/HDL RATIO 2.4 (<5.0); CHOLESTEROL 165 mg/dL; CREATININE 0.8 mg/dL (0.6-1.3); GFR - MDRD 93 (>89); GLUCOSE 131 mg/dL (74-104); HDL CHOLESTEROL 70 mg/dL; LDL CHOLESTEROL,CALCULATED 84 mg/dL; LDL/HDL RATIO 1.2 (<3.6); POTASSIUM 4.4 mmol/L (3.5-4.5); SODIUM 138 mmol/L (135-145); TOTAL PROTEIN 6.9 g/dL (6.4-8.9); TRIGLYCERIDES 53 mg/dL (48-352); VLDL CHOLESTEROL 11 mg/dL
== END 2024-02-13 08:12 | disposition home or self-care (01) ==
LOC: LAB.N 08:11
PROVIDERS: ATTEND Internal Medicine
DX: E78.5 Hyperlipidemia, unspecified (principal)
CPT/HCPCS: 36415; 80053; 80061; 83721

== ENCOUNTER 2024-02-17 11:28 | Outpatient (CLI) | payer MEDICARE ==
--- NOTE | 2024-02-17 15:47 | XRAY Report ---
PROCEDURE: Wrist 3+V BL INDICATIONS: ARTHRALGIA BILATERAL TECHNIQUE: 3 views of the wrist were acquired. COMPARISON: None. FINDINGS/IMPRESSION: Right: Age-indeterminate deformity of the ulnar styloid, likely posttraumatic. Moderate STT and first CMC degenerative changes. 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 Subchondral lucencies are present. Findings likely represent a combination of degene rative geodes and sequelae of prior inflammatory or crystal arthropathy. No acute displaced fracture or dislocation. Next partially seen moderate degenerative changes of the first MCP and second MCP. Left: Advanced degenerative changes of the radiocarpal row. Numerous nonacute appearing bone fragment s around the carpal bones. Osteolysis of the scaphoid, with proximal migration of the capitate. These are likely posttraumatic with secondary osteoarthritis. Scattered chondrocalcinosis and subchondral lucency also raises concern for prior superimposed crystal or inflammatory arthropathy. Partially seen advanced degenerative changes of the first MCP and first interphalangeal joint. Reviewed by: Alexis Carr MD on 02/17/2024 3:46 PM PDT Approved by: Alexis Carr MD on 02/17/2024 3:46 PM PDT Station ID: [id number]
== END 2024-02-17 11:29 | disposition home or self-care (01) ==
LOC: DI 11:28
PROVIDERS: ATTEND Internal Medicine
DX: M18.11 Unilateral primary osteoarthritis of first carpometacarpal joint, right hand (principal); M19.031 Primary osteoarthritis, right wrist; M19.032 Primary osteoarthritis, left wrist; M11.232 Other chondrocalcinosis, left wrist; M19.042 Primary osteoarthritis, left hand; M19.041 Primary osteoarthritis, right hand